=== PATIENT | male | born 1955 | race African-American/Black ===

== ENCOUNTER 2018-08-24 22:28 | Emergency (ER) | payer MEDICAID ==
[~2018-08-24] VITALS: Ht 182.9 cm; Wt 86.4 kg
[~2018-08-24 22:28] MED LIST: KEPP500 PO; MULT-1116 PO; RISP2TAB22 PO; THIA50TA2 PO
[2018-08-25] MEDS ORDERED: LEVETIRACETAM 1000MG/100ML 100 ML IV ONE
[2018-08-25] MEDS ORDERED: SODIUM CHLORIDE 0.9% 1,000 ML IV ONE
[2018-08-25 00:43] LABS: HEMATOCRIT. 38.1 % (42.0-52.0); HEMOGLOBIN. 12.8 g/dL (14.0-18.0); MEAN CORPUSCULAR HEMOGLOBIN 28.6 pg (28.0-32.0); MEAN PLATELET VOLUME 7.7 fl (7.4-10.4); PLATELET 165 x1000/uL (130-400); RED BLOOD CELL COUNT 4.49 mill/uL (4.7-6.1); RED CELL DISTRIBUTION WIDTH 14.3 % (11.6-14.6)
[2018-08-25 00:47] LABS: CHLORIDE 105 mEq/L (98-107)
[2018-08-25 00:53] LABS: ETHANOL BLOOD 56 mg/dL
[2018-08-25 01:16] LABS: PLATELET ESTIMATE NORMAL
[2018-08-25 02:02] VITALS: BP 138/86
[2018-08-25 08:24] LABS: CLARITY URINE CLEAR (CLEAR); COLOR URINE YELLOW (YELLOW); KETONES URINE NEGATIVE (NEGATIVE); LEUKOCYTE ESTERASE URINE 2+ (NEGATIVE); NITRITE URINE NEGATIVE (NEGATIVE); OCCULT BLOOD URINE NEGATIVE (NEGATIVE); PROTEIN URINE NEGATIVE (NEGATIVE); SPECIFIC GRAVITY URINE 1.016 (1.005-1.030); UROBILINOGEN URINE 0.2 E.U./dL (0.2-1.0)
[2018-08-25 08:51] LABS: *AMPHETAMINES SCREEN URINE NEGATIVE (NEGATIVE); *BARBITURATES SCREEN URINE NEGATIVE (NEGATIVE); *COCAINE SCREEN URINE NEGATIVE (NEGATIVE)
[2018-08-25 08:52] LABS: *BENZODIAZEPINES SCREEN URINE NEGATIVE (NEGATIVE); CANNABINOID URINE SCREEN NEGATIVE (NEGATIVE); METHADONE URINE SCREEN NEGATIVE (NEGATIVE); OPIATES URINE SCREEN NEGATIVE (NEGATIVE); PHENCYCLIDINE URINE SCREEN NEGATIVE (NEGATIVE)
== END 2018-08-25 06:53 | disposition home or self-care (01) ==
LOC: ER 08-25 06:38
DX: R56.9 Unspecified convulsions (principal); F03.90 Unspecified dementia, unspecified severity, without behavioral disturbance, psychotic disturbance, mood disturbance, and anxiety; F17.200 Nicotine dependence, unspecified, uncomplicated; Z91.14 Patient's other noncompliance with medication regimen
CPT/HCPCS: 36415; 70450; 80053; 80305; 81003; 85025; 93005; 96365; 99284; G0482; J1953; J7030

== ENCOUNTER 2020-07-22 16:36 | Inpatient (IN) | payer MEDICARE, MEDICAID ==
[~2020-07-22] VITALS: Ht 185.4 cm; Wt 82.1 kg
[2020-07-22 18:27] LABS: BASOPHILS % 1.1 % (0.0-2.0); EOSINOPHILS % 2.6 % (0.0-5.0); HEMATOCRIT. 43.7 % (42.0-52.0); HEMOGLOBIN. 14.8 g/dL (14.0-18.0); LYMPHOCYTES % 22.1 % (20.0-50.0); MEAN CORPUSCULAR VOLUME 85.5 fL (80.0-94.0); MEAN PLATELET VOLUME 8.4 fl (7.4-10.4); MONOCYTES % 12.3 % (2.0-8.0); NEUTROPHILS % 61.9 % (40.0-76.0); PLATELET 137 x1000/uL (130-400); RED BLOOD CELL COUNT 5.12 mill/uL (4.7-6.1); RED CELL DISTRIBUTION WIDTH 15.5 % (11.6-14.6)
[2020-07-22 18:29] LABS: CHLORIDE 109 mEq/L (98-107)
[2020-07-22 18:33] LABS: ETHANOL BLOOD 42 mg/dL
[2020-07-22 18:34] LABS: INR 1.1; PROTHROMBIN TIME 11.4 sec (9.6-11.0)
[2020-07-22] MEDS ORDERED: KCL 10MEQ/50ML PREMIX 50 ML IV ONE (21:00)
[2020-07-22 23:45] LABS: CLARITY URINE CLEAR (CLEAR); COLOR URINE YELLOW (YELLOW); KETONES URINE NEGATIVE (NEGATIVE); LEUKOCYTE ESTERASE URINE NEGATIVE (NEGATIVE); NITRITE URINE NEGATIVE (NEGATIVE); OCCULT BLOOD URINE NEGATIVE (NEGATIVE); PH URINE 6.5 (4.5-8.0); PROTEIN URINE NEGATIVE (NEGATIVE); SPECIFIC GRAVITY URINE 1.014 (1.005-1.030)
[2020-07-22] MEDS ORDERED: ACETAMINOPHEN 325MG TABLET PO PRN (23:45)
[2020-07-22 23:56] LABS: METHADONE URINE SCREEN NEGATIVE (NEGATIVE); OPIATES URINE SCREEN NEGATIVE (NEGATIVE)
[2020-07-22 23:57] LABS: *AMPHETAMINES SCREEN URINE NEGATIVE (NEGATIVE); *BARBITURATES SCREEN URINE NEGATIVE (NEGATIVE); *BENZODIAZEPINES SCREEN URINE NEGATIVE (NEGATIVE); *COCAINE SCREEN URINE NEGATIVE (NEGATIVE); CANNABINOID URINE SCREEN NEGATIVE (NEGATIVE); PHENCYCLIDINE URINE SCREEN NEGATIVE (NEGATIVE)
[2020-07-23] MEDS ORDERED: TRAMADOL 50MG TABLET PO PRN (00:15)
[2020-07-23 00:30] VITALS: BP 141/57
[2020-07-23] MEDS ORDERED: ACETAMINOPHEN 325MG TABLET PO PRN (01:15)
[2020-07-23] MEDS ORDERED: LORAZEPAM 1MG TABLET PO PRN (01:15)
[2020-07-23] MEDS ORDERED: POTASSIUM CHLORIDE 20MEQ TABLET SR PO NR (02:00)
[2020-07-23] MEDS: FAMOTIDINE 20MG TABLET PO SCH ×2 (02:02→17:04)
[2020-07-23 06:09] LABS: BASOPHILS % 0.8 % (0.0-2.0); EOSINOPHILS % 1.8 % (0.0-5.0); LYMPHOCYTES % 41.1 % (20.0-50.0); MEAN CORPUSCULAR HEMOGLOBIN 28.8 pg (28.0-32.0); MEAN CORPUSCULAR VOLUME 84.2 fL (80.0-94.0); MEAN PLATELET VOLUME 8.7 fl (7.4-10.4); MONOCYTES % 11.9 % (2.0-8.0); NEUTROPHILS % 44.4 % (40.0-76.0); PLATELET 138 x1000/uL (130-400); RED BLOOD CELL COUNT 4.87 mill/uL (4.7-6.1); RED CELL DISTRIBUTION WIDTH 15.6 % (11.6-14.6)
[2020-07-23 06:16] LABS: CHLORIDE 108 mEq/L (98-107)
[2020-07-23 08:00] VITALS: BP 120/75
[2020-07-23 12:00] VITALS: BP 130/73
[2020-07-23] MEDS ORDERED: POTASSIUM CHLORIDE 20MEQ TABLET SR PO SCH (13:30)
[2020-07-23 16:00] VITALS: BP 135/76
[2020-07-23] MEDS ORDERED: FOLIC ACID 1 MG, THIAMINE HCL 100 MG, MVI, ADULT NO.1 10 ML in DEXTROSE 5% WATER 1,000 ML IV ONE ×4 (17:00)
[2020-07-23 20:00] VITALS: BP 128/62
[2020-07-23] MEDS: LEVETIRACETAM 500MG TABLET PO SCH (20:25)
[2020-07-23] MEDS: RISPERIDONE 0.5MG TABLET PO SCH (20:25)
[2020-07-24] VITALS: BP 125/77
[2020-07-24 04:00] VITALS: BP 146/88
[2020-07-24 06:57] LABS: BASOPHILS % 0.6 % (0.0-2.0); EOSINOPHILS % 3.1 % (0.0-5.0); HEMATOCRIT. 41.6 % (42.0-52.0); HEMOGLOBIN. 14.3 g/dL (14.0-18.0); LYMPHOCYTES % 39.9 % (20.0-50.0); MEAN CORPUSCULAR HEMOGLOBIN 29.4 pg (28.0-32.0); MEAN CORPUSCULAR VOLUME 85.3 fL (80.0-94.0); MEAN PLATELET VOLUME 8.5 fl (7.4-10.4); MONOCYTES % 11.2 % (2.0-8.0); NEUTROPHILS % 45.2 % (40.0-76.0); PLATELET 120 x1000/uL (130-400); RED BLOOD CELL COUNT 4.88 mill/uL (4.7-6.1); RED CELL DISTRIBUTION WIDTH 15.6 % (11.6-14.6)
[2020-07-24 07:00] LABS: CHLORIDE 108 mEq/L (98-107)
[2020-07-24] MEDS: FAMOTIDINE 20MG TABLET PO SCH (07:44)
[2020-07-24] MEDS: LEVETIRACETAM 500MG TABLET PO SCH (07:45)
[2020-07-24] MEDS: RISPERIDONE 0.5MG TABLET PO SCH (07:45)
[2020-07-24 08:00] VITALS: BP 136/82
[2020-07-24] MEDS ORDERED: THIAMINE HCL 100MG TABLET PO SCH (09:00)
[2020-07-24] MEDS ORDERED: FOLIC ACID/VITAMIN B COMP W-C TABLET PO SCH (09:00)
[2020-07-24] MEDS ORDERED: MULTIVITAMINS,THER W-MINERALS TABLET PO SCH (09:00)
[2020-07-24] MEDS ORDERED: POTASSIUM CHLORIDE 20MEQ TABLET SR PO NR (14:15)
== END 2020-07-24 16:48 | disposition home health service (06) | DRG 74 ==
LOC: ER 16:36 → 8WST 19:36 → EDBEDREQSVC 19:39 → EDBEDREQ 19:39 → EDBEDREQTM 19:39 → ENRESERV 20:01 → CANRESERV 20:11 → ENRESERV 22:04
PROVIDERS: ADMIT Specialist; ATTEND Specialist
DX: G90.8 Other disorders of autonomic nervous system (principal); E44.0 Moderate protein-calorie malnutrition; E87.2 Acidosis; G40.909 Epilepsy, unspecified, not intractable, without status epilepticus; F10.129 Alcohol abuse with intoxication, unspecified; F03.90 Unspecified dementia, unspecified severity, without behavioral disturbance, psychotic disturbance, mood disturbance, and anxiety; E87.8 Other disorders of electrolyte and fluid balance, not elsewhere classified; E87.6 Hypokalemia; K57.90 Diverticulosis of intestine, part unspecified, without perforation or abscess without bleeding; M19.90 Unspecified osteoarthritis, unspecified site; S80.212A Abrasion, left knee, initial encounter; W18.39XA Other fall on same level, initial encounter; Z68.23 Body mass index [BMI] 23.0-23.9, adult; Z79.899 Other long term (current) drug therapy; Y93.89 Activity, other specified; Y92.89 Other specified places as the place of occurrence of the external cause; Y99.8 Other external cause status; Y90.2 Blood alcohol level of 40-59 mg/100 ml
CPT/HCPCS: 36415; 71045; 73562; 74176; 80048; 80053; 80305; 80320; 81003; 83605; 84145; 84484; 85025; 86850; 86900; 93005; 97162; 99285; J3411; J3480; J3490; J7070; G0480

== ENCOUNTER 2023-03-19 15:23 | Emergency (ER) | payer MEDICARE, MEDICAID ==
[~2023-03-19] VITALS: Ht 185.4 cm; Wt 82.0 kg
[~2023-03-19 15:23] MED LIST changes: -RISP2TAB22 PO; +RISP2TAB85 PO
[2023-03-19] MEDS ORDERED: ACETAMINOPHEN 325MG TABLET PO ONE (15:30)
[2023-03-19 15:43] VITALS: O2SAT 98
[2023-03-19 16:23] LABS: BASOPHILS % 0.7 % (0.0-2.0); EOSINOPHILS % 2.5 % (0.0-5.0); HEMATOCRIT. 39.3 % (42.0-52.0); HEMOGLOBIN. 13.3 g/dL (14.0-18.0); LYMPHOCYTES % 47.4 % (20.0-50.0); MEAN CORPUSCULAR HEMOGLOBIN 28.4 pg (28.0-32.0); MEAN PLATELET VOLUME 8.3 fl (7.4-10.4); MONOCYTES % 10.3 % (2.0-8.0); NEUTROPHILS % 39.1 % (40.0-76.0); PLATELET 216 x1000/uL (130-400); RED BLOOD CELL COUNT 4.68 mill/uL (4.7-6.1); RED CELL DISTRIBUTION WIDTH 14.2 % (11.6-14.6)
[2023-03-19 16:30] LABS: CHLORIDE 111 mEq/L (98-107)
[2023-03-19 17:13] VITALS: TEMP 97.7
[2023-03-19] MEDS ORDERED: ACETAMINOPHEN 325MG TABLET PO NR (17:15)
[2023-03-19] MEDS ORDERED: APIX5TAB MT (22:52)
[2023-03-19 23:05] VITALS: BP 133/77; PULSE 68; RESP 16
== END 2023-03-19 23:06 | disposition home or self-care (01) ==
LOC: ER 15:23
DX: M77.42 Metatarsalgia, left foot (principal); I10 Essential (primary) hypertension
CPT/HCPCS: 36415; 73620; 80048; 85025; 93971; 99285

== ENCOUNTER 2023-09-16 11:09 | Emergency (ER) | payer MEDICARE, MEDICAID ==
[~2023-09-16] VITALS: Ht 175.3 cm; Wt 73.0 kg
[~2023-09-16 11:09] MED LIST changes: +APIX5TAB MT; -RISP2TAB85 PO
[2023-09-16 11:15] VITALS: O2SAT 98
[2023-09-16 11:45] VITALS: BP 128/70
[2023-09-16] MEDS ORDERED: IBUPROFEN 600MG TABLET PO ONE (11:45)
[2023-09-16] MEDS ORDERED: NAPR-681 MT (12:34)
[2023-09-16 13:37] VITALS: PULSE 86; RESP 16; TEMP 97.8
== END 2023-09-16 13:37 | disposition home or self-care (01) ==
LOC: ER 11:09
DX: S80.01XA Contusion of right knee, initial encounter (principal); I10 Essential (primary) hypertension; Z98.890 Other specified postprocedural states; Z86.59 Personal history of other mental and behavioral disorders; W18.30XA Fall on same level, unspecified, initial encounter; Y93.89 Activity, other specified; Y92.89 Other specified places as the place of occurrence of the external cause; Y99.8 Other external cause status
CPT/HCPCS: 73562; 99283